=== PATIENT | female | born 1940 | race Caucasian/White ===

== ENCOUNTER 2016-12-25 21:47 | Inpatient (IN) | payer MEDICARE, OTHER ==
[~2016-12-25] VITALS: Ht 167.6 cm; Wt 77.2 kg
[~2016-12-25 21:47] MED LIST: AMOX875T; ASPI-152 PO; BIMA2.5D EACHEYE; METO25TA91 PO; NAPR220C2; TAMS0.4C2 PO; [UNRECOGNIZED DRUG - REMARK]
[2016-12-25 22:24] LABS: IS PT STATUS REG ER OR PRE ER? YES
[2016-12-25] MEDS ORDERED: ASPI-621 PO (22:44)
[2016-12-26] MEDS ORDERED: MORPHINE SULFATE 4 MG/ML, 1ML IVPush PRN
[2016-12-26] MEDS ORDERED: ONDANSETRON 2MG/ML, 2ML IVPush PRN
[2016-12-26] MEDS ORDERED: SODIUM CHLORIDE 0.9% 1,000 ML IV SCH (00:24)
[2016-12-26] MEDS ORDERED: HYDROcodone/APAP 5/325 TABLET PO PRN (00:30)
[2016-12-26] MEDS ORDERED: LABETALOL 5MG/ML, 20ML IV PRN (00:30)
[2016-12-26] MEDS ORDERED: BISACODYL 10 MG SUPP PR PRN (00:30)
[2016-12-26] MEDS ORDERED: ENALAPRILAT 1.25 MG/ML, 2ML IVPush PRN (00:30)
[2016-12-26] MEDS ORDERED: DOCUSATE 100 MG CAPSULE PO PRN (00:30)
[2016-12-26] MEDS ORDERED: POTASSIUM CHLORIDE 20 MEQ TAB.ER.PRT PO ONE (00:30)
[2016-12-26] MEDS ORDERED: POLYETHYLENE GLYCOL 17 GM PACKET PO PRN (00:30)
[2016-12-26] MEDS ORDERED: ACETAMINOPHEN 325 MG TABLET PO PRN (00:30)
[2016-12-26] MEDS ORDERED: ONDANSETRON 2MG/ML, 2ML IVP PRN (00:30)
[2016-12-26 00:46] VITALS: BP 119/72
[2016-12-26 01:39] LABS: IS PT STATUS REG ER OR PRE ER? NO
[2016-12-26] MEDS: ENOXAPARIN 40 MG/0.4 ML SQ SCH (01:59)
[2016-12-26] MEDS ORDERED: OMNIPAQUE 350 MG/ML, 100ML BOTTLE ONE (04:52)
[2016-12-26 05:31] LABS: BLOOD UREA NITROGEN 18 mg/dL (7-18)
[2016-12-26 05:34] LABS: IS PT STATUS REG ER OR PRE ER? NO
[2016-12-26 05:40] LABS: ASPARTATE AMINO TRANSFERASE 12 U/L (15-37)
[2016-12-26 07:30] VITALS: BP 122/70
[2016-12-26] MEDS: ASPIRIN 81 MG TABLET EC PO SCH (08:45)
[2016-12-26 12:51] VITALS: BP 115/73
[2016-12-26 20:05] VITALS: BP 120/73
[2016-12-26] MEDS: ATORVASTATIN 40 MG TABLET PO SCH (21:49)
[2016-12-26] MEDS: LATANOPROST OPHTH 0.005%, 2.5ML EACHEYE SCH (21:50)
[2016-12-27] MEDS: ENOXAPARIN 40 MG/0.4 ML SQ SCH (00:51)
[2016-12-27 01:50] VITALS: BP 119/73
[2016-12-27 05:44] LABS: BLOOD UREA NITROGEN 13 mg/dL (7-18)
[2016-12-27 06:55] VITALS: BP 121/76
[2016-12-27] MEDS: ASPIRIN 81 MG TABLET EC PO SCH (10:04)
[2016-12-27 12:20] VITALS: BP 124/74
[2016-12-27 19:51] VITALS: BP 153/76
[2016-12-27] MEDS ORDERED: METOPROLOL SUCCINATE 25 MG TAB.ER.24H PO SCH (21:00)
[2016-12-27] MEDS: LATANOPROST OPHTH 0.005%, 2.5ML EACHEYE SCH (21:02)
[2016-12-27] MEDS: ATORVASTATIN 40 MG TABLET PO SCH (21:02)
[2016-12-28] MEDS: ENOXAPARIN 40 MG/0.4 ML SQ SCH (00:40)
[2016-12-28 02:59] VITALS: BP 132/75
[2016-12-28 07:16] VITALS: BP 124/76
[2016-12-28] MEDS: ASPIRIN 81 MG TABLET EC PO SCH (08:20)
[2016-12-28 13:35] VITALS: BP 129/77
[2016-12-28] MEDS ORDERED: APIX5TAB PO (16:36)
[2016-12-28] MEDS ORDERED: ATOR40TA78 PO (16:36)
== END 2016-12-28 19:32 | disposition home or self-care (01) | DRG 65 ==
LOC: ED 22:30 → EDIP 23:40 → 4EST 12-26 00:46
PROVIDERS: ADMIT Internal Medicine; ATTEND Internal Medicine
DX: I63.9 Cerebral infarction, unspecified (principal); D68.69 Other thrombophilia; E87.6 Hypokalemia; I10 Essential (primary) hypertension; H35.30 Unspecified macular degeneration; I48.0 Paroxysmal atrial fibrillation; I45.10 Unspecified right bundle-branch block; I48.2 Chronic atrial fibrillation; Z79.82 Long term (current) use of aspirin; Z85.3 Personal history of malignant neoplasm of breast; Z86.73 Personal history of transient ischemic attack (TIA), and cerebral infarction without residual deficits; Z87.891 Personal history of nicotine dependence; Z90.49 Acquired absence of other specified parts of digestive tract; Z90.12 Acquired absence of left breast and nipple; Z90.710 Acquired absence of both cervix and uterus; Z79.899 Other long term (current) drug therapy; Z92.3 Personal history of irradiation; Z92.21 Personal history of antineoplastic chemotherapy
CPT/HCPCS: 36415; 70450; 70496; 70498; 70551; 71010; 80047; 80048; 80053; 80061; 83735; 84439; 84443; 84484; 85025; 85610; 85730; 93005; 93306; 93880; 99285; J1650; Q9967; 92523-GN; J7030

== ENCOUNTER 2017-02-10 13:27 | Emergency (ER) | payer MEDICARE ==
[~2017-02-10] VITALS: Ht 167.6 cm; Wt 70.3 kg
[~2017-02-10 13:27] MED LIST changes: +APIX5TAB PO; +ASPI-621 PO; +ATOR40TA78 PO
[2017-02-10] MEDS ORDERED: APIX2.5T PO (13:39)
[2017-02-10] MEDS ORDERED: KETOROLAC 30 MG/1 ML IVPush ONE (14:00)
[2017-02-10] MEDS ORDERED: METHOCARBAMOL 750 MG TABLET PO ONE (14:00)
[2017-02-10] MEDS ORDERED: morphine SULFATE 10 MG/ML, 1ML IVPush ONE (14:00)
[2017-02-10] MEDS ORDERED: KETOROLAC 30 MG/1 ML ONE (14:11)
[2017-02-10] MEDS ORDERED: METHOCARBAMOL 750 MG TABLET ONE (14:11)
[2017-02-10 14:22] LABS: BLOOD UREA NITROGEN 16 mg/dL (7-18)
[2017-02-10 16:13] VITALS: BP 126/73
== END 2017-02-10 17:04 | disposition home or self-care (01) ==
LOC: ED 14:16
DX: S39.012A Strain of muscle, fascia and tendon of lower back, initial encounter (principal); I10 Essential (primary) hypertension; I48.91 Unspecified atrial fibrillation; G45.9 Transient cerebral ischemic attack, unspecified; X58.XXXA Exposure to other specified factors, initial encounter; Y93.89 Activity, other specified; Y92.89 Other specified places as the place of occurrence of the external cause; Y99.8 Other external cause status
CPT/HCPCS: 36415; 72131; 80048; 85025; 96374; 99285; J1885

== ENCOUNTER → 2017-05-12 | Outpatient (CLI) | payer MEDICARE ==
[~2017-05-12] MED LIST changes: +APIX2.5T PO; +REGADENOSON 0.4 MG/5 ML SYRINGE ONE
== END | disposition home or self-care (01) ==
LOC: CFH 08:29
PROVIDERS: ATTEND Internal Medicine Cardiovascular Disease
DX: I48.0 Paroxysmal atrial fibrillation (principal); I10 Essential (primary) hypertension; I63.9 Cerebral infarction, unspecified
CPT/HCPCS: 78452; 93017; A9502; J2785

== ENCOUNTER → 2017-12-27 | Outpatient (CLI) | payer OTHER ==
[~2017-12-27] MED LIST changes: -REGADENOSON 0.4 MG/5 ML SYRINGE ONE
== END | disposition home or self-care (01) ==
LOC: CFH 08:53
PROVIDERS: ATTEND Nurse Practitioner Gerontology
DX: Z12.2 Encounter for screening for malignant neoplasm of respiratory organs (principal); Z13.6 Encounter for screening for cardiovascular disorders; Z87.891 Personal history of nicotine dependence
CPT/HCPCS: 93978; G0297

== ENCOUNTER 2019-09-10 08:49 | Outpatient (CLI) | payer MEDICARE ==
[~2019-09-10 08:49] MED LIST changes: -ASPI-621 PO; +ASPI81TA45 PO
== END 2019-09-10 23:59 | disposition home or self-care (01) ==
LOC: CFH 08:49
PROVIDERS: ATTEND Internal Medicine Cardiovascular Disease
DX: I08.3 Combined rheumatic disorders of mitral, aortic and tricuspid valves (principal); I48.91 Unspecified atrial fibrillation; E78.5 Hyperlipidemia, unspecified; Z85.3 Personal history of malignant neoplasm of breast; Z86.73 Personal history of transient ischemic attack (TIA), and cerebral infarction without residual deficits
CPT/HCPCS: 93306

== ENCOUNTER → 2020-12-16 | Outpatient (CLI) | payer MEDICARE | END | disposition home or self-care (01) | LOC: CFH 10:01 | PROVIDERS: ATTEND Internal Medicine Cardiovascular Disease | DX: I08.0 Rheumatic disorders of both mitral and aortic valves (principal); I48.19 Other persistent atrial fibrillation; E78.5 Hyperlipidemia, unspecified; I10 Essential (primary) hypertension; Z87.891 Personal history of nicotine dependence | CPT/HCPCS: 93306 ==

== ENCOUNTER 2021-04-21 11:10 | Emergency (ER) | payer MEDICARE ==
[~2021-04-21] VITALS: Ht 165.1 cm; Wt 75.0 kg
--- NOTE | 2021-04-21 12:00 | NUR ---
PT IN RAD.
[2021-04-21] MEDS ORDERED: HYDROcodone/APAP 5/325 TABLET ONE ×2 (12:54→17:01)
--- NOTE | 2021-04-21 12:59 | NUR ---
break rn. patient resting comftorably in distress with pain in left shoulder. pain medication adminstered per mar. patient aox4 lev at bedside will allow pain medicine to start working before cleaning wound. no other needs at this time
[2021-04-21] MEDS ORDERED: HYDROcodone/APAP 5/325 TABLET PO PRN (13:00)
[2021-04-21] MEDS ORDERED: NEOSPORIN OINT. PKT 1 PACKET ONE (13:36)
[2021-04-21 15:23] VITALS: BP 146/83
--- NOTE | 2021-04-21 16:30 | NUR ---
PT FAMILY REQUESTING PAIN MEDS FOR PT PRIOR TO DC. ERP UPDATED.
[2021-04-21] MEDS ORDERED: HYDROcodone/APAP 5/325 TABLET PO ONE (17:00)
--- NOTE | 2021-04-21 17:16 | NUR ---
Patient given discharge instructions and they have confirmed that they understand the instructions. Patient wheeled to dc desk per pt request.
== END 2021-04-21 17:19 | disposition home or self-care (01) ==
LOC: ED 17:10
DX: S42.202A Unspecified fracture of upper end of left humerus, initial encounter for closed fracture (principal); I10 Essential (primary) hypertension; Z86.73 Personal history of transient ischemic attack (TIA), and cerebral infarction without residual deficits; Z90.89 Acquired absence of other organs; W18.30XA Fall on same level, unspecified, initial encounter; Y93.89 Activity, other specified; Y92.511 Restaurant or cafe as the place of occurrence of the external cause; Y99.8 Other external cause status
CPT/HCPCS: 29105; 99284